=== PATIENT | male | born 1955 | race Caucasian/White ===

== ENCOUNTER 2020-07-20 05:44 | Day surgery (SDC) | payer MEDICARE ==
[2020-07-19 10:09] VITALS: BMI 25.7
[2020-07-20] MEDS ORDERED: Fentanyl 100 MCG/2 ML VIAL ONE (06:19)
[2020-07-20] MEDS ORDERED: Famotidine/PF 20 mg/2ml Vial ONE (06:20)
[2020-07-20] MEDS ORDERED: Bupivacaine 0.25% HCL 30 ML VIAL ONE (06:22)
[2020-07-20] MEDS ORDERED: EPINEPHrine 1 MG/ML AMP ONE (06:22)
[2020-07-20] MEDS ORDERED: SUGAMMADEX SODIUM 200 MG/2 ML VIAL ONE (06:46)
[2020-07-20] MEDS ORDERED: HYDROcodone/Acetaminophen 5/325 mg Tablet ONE (09:58)
[2020-07-20] MEDS ORDERED: ePHEDrine 50 MG/ML VIAL ONE (10:35)
[2020-07-20] MEDS ORDERED: PHENYLEPHRINE-NS 100 MCG/ML 10 ML SYRINGE ONE (10:35)
[2020-07-20] MEDS ORDERED: Lidocaine 1% PF 5 ML VIAL ONE (10:35)
[2020-07-20] MEDS ORDERED: Rocuronium Bromide 10 MG/ML (10ML VIAL) ONE (10:35)
[2020-07-20] MEDS ORDERED: Dexamethasone 20 MG/5 ML VIAL ONE (10:35)
[2020-07-20] MEDS ORDERED: Metoclopramide HCl 10 MG/2 ML VIAL ONE (10:35)
[2020-07-20] MEDS ORDERED: Ketorolac Tromethamine 30 MG/ML VIAL ONE (10:35)
[2020-07-20] MEDS ORDERED: Ondansetron PF 4 MG/2 ML Vial ONE (10:35)
[2020-07-20] MEDS ORDERED: PROPOFOL 200 MG/20 ML VIAL ONE (10:35)
--- NOTE | 2020-07-20 21:27 | OP ---
DATE OF PROCEDURE: 07/20/2020 PREOPERATIVE DIAGNOSIS: Left inguinal hernia. POSTOPERATIVE DIAGNOSIS: Left inguinal hernia. PROCEDURE PERFORMED: Da Gerri laparoscopic left inguinal hernia repair with mesh, 3DMax large. ANESTHESIA: General. ESTIMATED BLOOD LOSS: Minimal. COMPLICATIONS: None. SPECIMEN: None. FINDINGS: Left inguinal hernia. TECHNIQUE: The patient was taken to the operating room and laid supine on the operating room table. After general anesthetic was obtained, a Alex was placed. The abdomen was prepped and draped in a sterile fashion. Incision was made above the umbilicus. Cautery was used to dissect down to and score the fascia. Abdominal cavity was entered bluntly using a Luda clamp. An 11 mm balloon trocar was placed and high-flow pneumoperitoneum was obtained. Left and right abdominal 8-mm robot trocars were placed. All ports were docked to the robot. The surgeon goes to the console. The patient has left inguinal hernia. No right inguinal hernia. The 3DMax large mesh and the suture needles are placed into the abdomen. The surgeon goes to the console. The peritoneum was taken down in the left groin exposing the preperitoneal space. Preperitoneal space was bluntly dissected to pubic tubercle medially, anterior superior iliac crest laterally. Shelving edge of the inguinal ligament fully exposed. The indirect hernia sac was dissected high up on to the peritoneum. The direct defect was dissected back high up on to the peritoneum. The 3DMax large mesh was brought into the preperitoneal space and the M-labeled medial aspect was placed over pubic tubercle. The mesh was then laid out laterally to cover the direct, indirect, and femoral areas. The mesh was sewn via 2-0 Vicryl to pubic tubercle medially to the posterior fascia laterally. The peritoneum was reapproximated using running 3-0 Stratafix. All needles were removed from the abdomen and accounted for. There was no injury to any intraabdominal structures. All port sites were infiltrated using local anesthetic. All ports were removed under camera visualization. Pneumoperitoneum was let down. PDS was used to close the fascial defect above the umbilicus. All incisions were irrigated and closed using 4-0 Monocryl and Dermabond. The patient was sent to Recovery in stable condition. All instrument counts, needle counts, and lap counts were correct. Job ID: [id number]
== END 2020-07-20 11:00 | disposition home or self-care (01) ==
LOC: SDC 05:44
PROVIDERS: ATTEND Surgery
PROC: 0YU64JZ Supplement Left Inguinal Region with Synthetic Substitute, Percutaneous Endoscopic Approach (ICD-10-PCS; principal; 2020-07-20)
DX: K40.90 Unilateral inguinal hernia, without obstruction or gangrene, not specified as recurrent (principal); F41.9 Anxiety disorder, unspecified; J44.9 Chronic obstructive pulmonary disease, unspecified; F17.210 Nicotine dependence, cigarettes, uncomplicated; G43.909 Migraine, unspecified, not intractable, without status migrainosus; Z79.899 Other long term (current) drug therapy; Z90.5 Acquired absence of kidney
CPT/HCPCS: 49650; C1781; J0171; J0690; J1100; J1885; J2405; J2704; J2765; J3010; J3490; S0020; S0028

== ENCOUNTER 2021-01-17 08:26 | Day surgery (SDC) | payer MEDICARE ==
[2021-01-16 11:26] VITALS: BMI 24.3
[2021-01-17] MEDS ORDERED: Bupivacaine 0.25% HCL 30 ML VIAL ONE (09:56)
[2021-01-17] MEDS ORDERED: Lidocaine 1% w/Epinephrine 1:100K 20 ML VIAL ONE (09:56)
[2021-01-17] MEDS ORDERED: Bupivacaine PF 0.5% 30 ML VIAL ONE (09:59)
[2021-01-17] MEDS ORDERED: Fentanyl 100 MCG/2 ML VIAL ONE (10:05)
[2021-01-17] MEDS ORDERED: ePHEDrine 50 MG/ML VIAL ONE (10:21)
[2021-01-17] MEDS ORDERED: Ondansetron PF 4 MG/2 ML Vial ONE (10:21)
[2021-01-17] MEDS ORDERED: PROPOFOL 200 MG/20 ML VIAL ONE (10:21)
[2021-01-17] MEDS ORDERED: Dexamethasone 20 MG/5 ML VIAL ONE (10:21)
[2021-01-17] MEDS ORDERED: Lidocaine 1% PF 5 ML VIAL ONE (10:21)
== END 2021-01-17 13:04 | disposition home or self-care (01) ==
LOC: SDC 08:26
PROVIDERS: ATTEND Surgery
PROC: 0YU60JZ Supplement Left Inguinal Region with Synthetic Substitute, Open Approach (ICD-10-PCS; principal; 2021-01-17)
DX: K40.91 Unilateral inguinal hernia, without obstruction or gangrene, recurrent (principal); J44.9 Chronic obstructive pulmonary disease, unspecified; F17.210 Nicotine dependence, cigarettes, uncomplicated; N43.3 Hydrocele, unspecified; Z85.528 Personal history of other malignant neoplasm of kidney; Z79.82 Long term (current) use of aspirin; Z79.899 Other long term (current) drug therapy; Z88.8 Allergy status to other drugs, medicaments and biological substances; Z90.5 Acquired absence of kidney
CPT/HCPCS: 49520; A4306; C1781; J0690; J1100; J2405; J2704; J3010; J3490; S0020

== ENCOUNTER 2025-01-17 16:58 | Inpatient (IN) | payer OTHER ==
[2025-01-17 19:49] VITALS: BMI 20.5
[2025-01-18 06:28] LABS: #Basophils 0.03 10x3/uL (0.0-0.2); #Eosinophils Less than 0.03 10x3/uL (0.0-0.7); #Monocytes 0.91 10x3/uL (0.11-0.59); #Neutrophils 13.10 10x3/uL (1.40-6.50); %Basophils 0.2 % (0.0-1.0); %Eosinophils 0.0 % (0.0-10.0); %Lymphocytes 10.5 % (21.0-51.0); %Monocytes 5.8 % (0.0-10.0); %Neutrophils 82.9 % (42.0-75.0); Hematocrit 35.6 % (42.0-52.0); Hemoglobin 11.2 g/dL (14.0-18.0); Mean Corpuscular Hemoglobin 30.2 pg (27.0-31.0); Mean Corpuscular Volume 96.0 fL (78.0-98.0); Platelet Count 366 10x3/uL (130-400); Red Blood Cell (RBC) Count 3.71 mill/uL (4.70-6.10); White Blood Cell (WBC) Count 15.80 10x3/uL (4.8-10.8)
[2025-01-18 07:24] LABS: ALT (SGPT) Less than 7 U/L (Less than 45); AST (SGOT) 10 U/L (11-34); Albumin 2.8 g/dL (3.1-4.5); Alkaline Phosphatase 72 U/L (40-110); Anion Gap 14 mmol/L (10-20); BUN (Urea Nitrogen) 16 mg/dL (8.4-25.7); Bilirubin, Total 0.2 mg/dL (0.3-1.2); Calc. Creatinine Clearance 64 mL/min (70-130); Calcium 9.7 mg/dL (7.8-10.44); Carbon Dioxide 22 mmol/L (23-31); Chloride 107 mmol/L (98-107); Globulin 3.3 g/dL (2.4-3.5); Glucose 108 mg/dL (83-110); Potassium 4.4 mmol/L (3.5-5.1); Sodium 139 mmol/L (136-145)
[2025-01-18] MEDS: Azithromycin 250 MG TAB PO SCH (08:41)
[2025-01-18] MEDS: Ibuprofen 200 MG TAB PO SCH (08:41)
[2025-01-18] MEDS: predniSONE 20 MG TAB PO SCH (08:41)
[2025-01-18] MEDS: Aspirin Chewable 81 MG TAB PO SCH (08:41)
[2025-01-18] MEDS ORDERED: Acetaminophen 500 MG TAB PO SCH (09:00)
[2025-01-19] MEDS: Acetaminophen 500 MG TAB PO PRN (05:02)
[2025-01-19] MEDS: Benzocaine/Menthol 1 LOZ LOZ PO PRN (05:02)
[2025-01-19 10:52] VITALS: BMI 20.5
[2025-01-19 11:14] LABS: #Basophils 0.06 10x3/uL (0.0-0.2); #Eosinophils 0.05 10x3/uL (0.0-0.7); #Monocytes 1.60 10x3/uL (0.11-0.59); #Neutrophils 18.93 10x3/uL (1.40-6.50); %Basophils 0.3 % (0.0-1.0); %Eosinophils 0.2 % (0.0-10.0); %Lymphocytes 10.0 % (21.0-51.0); %Monocytes 6.9 % (0.0-10.0); %Neutrophils 81.8 % (42.0-75.0); Hematocrit 37.6 % (42.0-52.0); Hemoglobin 12.1 g/dL (14.0-18.0); Mean Corpuscular Hemoglobin 30.7 pg (27.0-31.0); Mean Corpuscular Volume 95.4 fL (78.0-98.0); Platelet Count 364 10x3/uL (130-400); Red Blood Cell (RBC) Count 3.94 mill/uL (4.70-6.10); White Blood Cell (WBC) Count 23.13 10x3/uL (4.8-10.8)
[2025-01-19 11:38] LABS: ALT (SGPT) 8 U/L (Less than 45); AST (SGOT) 18 U/L (11-34); Albumin 2.8 g/dL (3.1-4.5); Alkaline Phosphatase 71 U/L (40-110); Anion Gap 13 mmol/L (10-20); BUN (Urea Nitrogen) 20 mg/dL (8.4-25.7); Bilirubin, Total 0.2 mg/dL (0.3-1.2); Calc. Creatinine Clearance 79 mL/min (70-130); Calcium 9.4 mg/dL (7.8-10.44); Carbon Dioxide 23 mmol/L (23-31); Chloride 103 mmol/L (98-107); Globulin 4.0 g/dL (2.4-3.5); Glucose 111 mg/dL (83-110); Potassium 3.9 mmol/L (3.5-5.1); Sodium 135 mmol/L (136-145)
[2025-01-19] MEDS: Melatonin 3 MG TAB PO PRN (21:29)
[2025-01-20 06:17] LABS: #Basophils 0.07 10x3/uL (0.0-0.2); #Eosinophils 0.17 10x3/uL (0.0-0.7); #Monocytes 1.29 10x3/uL (0.11-0.59); #Neutrophils 13.76 10x3/uL (1.40-6.50); %Basophils 0.4 % (0.0-1.0); %Eosinophils 0.9 % (0.0-10.0); %Lymphocytes 19.2 % (21.0-51.0); %Monocytes 6.8 % (0.0-10.0); %Neutrophils 72.0 % (42.0-75.0); Hematocrit 38.1 % (42.0-52.0); Hemoglobin 12.1 g/dL (14.0-18.0); Mean Corpuscular Hemoglobin 30.6 pg (27.0-31.0); Mean Corpuscular Volume 96.2 fL (78.0-98.0); Platelet Count 331 10x3/uL (130-400); Red Blood Cell (RBC) Count 3.96 mill/uL (4.70-6.10); White Blood Cell (WBC) Count 19.08 10x3/uL (4.8-10.8)
[2025-01-20 06:39] LABS: ALT (SGPT) 11 U/L (Less than 45); AST (SGOT) 17 U/L (11-34); Albumin 2.8 g/dL (3.1-4.5); Alkaline Phosphatase 67 U/L (40-110); Anion Gap 11 mmol/L (10-20); BUN (Urea Nitrogen) 18 mg/dL (8.4-25.7); Bilirubin, Total 0.3 mg/dL (0.3-1.2); Calc. Creatinine Clearance 75 mL/min (70-130); Calcium 9.5 mg/dL (7.8-10.44); Carbon Dioxide 26 mmol/L (23-31); Chloride 102 mmol/L (98-107); Globulin 3.9 g/dL (2.4-3.5); Glucose 90 mg/dL (83-110); Potassium 4.0 mmol/L (3.5-5.1); Sodium 135 mmol/L (136-145)
[2025-01-20 17:35] VITALS: BP 130/80; TEMP 98
== END 2025-01-20 17:34 | disposition home or self-care (01) | DRG 189 ==
LOC: INTOOBSV 18:11 → T4-B 18:11 → OBSVTOIN 01-18 15:48
PROVIDERS: ADMIT Family Medicine; ATTEND Family Medicine
DX: J96.01 Acute respiratory failure with hypoxia (principal); J44.1 Chronic obstructive pulmonary disease with (acute) exacerbation; I10 Essential (primary) hypertension; Z98.890 Other specified postprocedural states; Z85.528 Personal history of other malignant neoplasm of kidney; Z88.8 Allergy status to other drugs, medicaments and biological substances; D64.9 Anemia, unspecified; E83.52 Hypercalcemia; Z79.899 Other long term (current) drug therapy; Z79.82 Long term (current) use of aspirin; Z91.013 Allergy to seafood; F17.210 Nicotine dependence, cigarettes, uncomplicated; Z90.5 Acquired absence of kidney; R91.8 Other nonspecific abnormal finding of lung field
CPT/HCPCS: 36415; 80053; 84145; 85025; 94640; G0378; J7512; J7620

== ENCOUNTER 2025-03-07 10:15 | Outpatient (CLI) | payer OTHER | END 2025-03-07 10:16 | disposition home or self-care (01) | LOC: PET 10:15 | PROVIDERS: ATTEND Internal Medicine Critical Care Medicine | DX: R91.1 Solitary pulmonary nodule (principal); C34.12 Malignant neoplasm of upper lobe, left bronchus or lung; C77.9 Secondary and unspecified malignant neoplasm of lymph node, unspecified; E27.8 Other specified disorders of adrenal gland | CPT/HCPCS: 78815; A9552 ==

== ENCOUNTER 2025-04-10 13:38 | Outpatient (CLI) | payer OTHER ==
[2025-04-10 14:12] LABS: Estimated GFR - POC 65.0
== END 2025-04-10 13:39 | disposition home or self-care (01) ==
LOC: SCSMRI 13:38
PROVIDERS: ATTEND Radiology Radiation Oncology
DX: C34.12 Malignant neoplasm of upper lobe, left bronchus or lung (principal); J32.0 Chronic maxillary sinusitis; H53.2 Diplopia; I63.81 Other cerebral infarction due to occlusion or stenosis of small artery; R90.82 White matter disease, unspecified; M54.10 Radiculopathy, site unspecified
CPT/HCPCS: 36415; 70553; 76376; 82565

== ENCOUNTER 2025-05-05 14:47 | Inpatient (IN) | payer OTHER ==
[2025-05-05] MEDS ORDERED: Aspirin Chewable 81 MG TAB ONE (15:29)
[2025-05-05] MEDS ORDERED: dilTIAZem 25 MG/5 ML VIAL ONE (15:29)
[2025-05-05 15:31] LABS: #Basophils 0.04 10x3/uL (0.0-0.2); #Eosinophils Less than 0.03 10x3/uL (0.0-0.7); #Monocytes 0.66 10x3/uL (0.11-0.59); #Neutrophils 22.91 10x3/uL (1.40-6.50); %Basophils 0.2 % (0.0-1.0); %Eosinophils 0.0 % (0.0-10.0); %Lymphocytes 2.7 % (21.0-51.0); %Monocytes 2.7 % (0.0-10.0); %Neutrophils 93.7 % (42.0-75.0); Hematocrit 41.7 % (42.0-52.0); Hemoglobin 13.3 g/dL (14.0-18.0); Mean Corpuscular Hemoglobin 30.2 pg (27.0-31.0); Mean Corpuscular Volume 94.6 fL (78.0-98.0); Platelet Count 492 10x3/uL (130-400); Red Blood Cell (RBC) Count 4.41 mill/uL (4.70-6.10); White Blood Cell (WBC) Count 24.45 10x3/uL (4.8-10.8)
[2025-05-05 15:46] LABS: ALT (SGPT) 56 U/L (Less than 45); AST (SGOT) 22 U/L (11-34); Albumin 3.4 g/dL (3.1-4.5); Alkaline Phosphatase 130 U/L (40-110); Anion Gap 17 mmol/L (10-20); BUN (Urea Nitrogen) 22 mg/dL (8.4-25.7); Bilirubin, Total 0.5 mg/dL (0.3-1.2); Calc. Creatinine Clearance 0 mL/min (70-130); Calcium 9.9 mg/dL (7.8-10.44); Carbon Dioxide 19 mmol/L (23-31); Chloride 105 mmol/L (98-107); Globulin 4.0 g/dL (2.4-3.5); Glucose 160 mg/dL (83-110); Potassium 4.8 mmol/L (3.5-5.1); Sodium 136 mmol/L (136-145)
[2025-05-05] MEDS ORDERED: Azithromycin 500 MG VIAL ONE (15:55)
[2025-05-05] MEDS ORDERED: cefTRIAXone (ROCEPHIN) 1 GM VIAL ONE (15:55)
[2025-05-05] MEDS ORDERED: Acetaminophen 325 MG TAB PO PRN (16:59)
[2025-05-05] MEDS: Ibuprofen 200 MG TAB PO SCH (20:55)
[2025-05-05] MEDS: Enoxaparin 80 MG (0.8 mL) SYRINGE SC SCH (20:56)
[2025-05-06] MEDS: Diltiazem HCl/D5W 125 MG in Premix 1 BAG IVPB SCH (04:15)
[2025-05-06 04:53] LABS: #Basophils 0.05 10x3/uL (0.0-0.2); #Eosinophils 0.05 10x3/uL (0.0-0.7); #Monocytes 1.12 10x3/uL (0.11-0.59); #Neutrophils 20.42 10x3/uL (1.40-6.50); %Basophils 0.2 % (0.0-1.0); %Eosinophils 0.2 % (0.0-10.0); %Lymphocytes 5.8 % (21.0-51.0); %Monocytes 4.8 % (0.0-10.0); %Neutrophils 88.2 % (42.0-75.0); Hematocrit 36.9 % (42.0-52.0); Hemoglobin 11.9 g/dL (14.0-18.0); Mean Corpuscular Hemoglobin 30.6 pg (27.0-31.0); Mean Corpuscular Volume 94.9 fL (78.0-98.0); Platelet Count 357 10x3/uL (130-400); Red Blood Cell (RBC) Count 3.89 mill/uL (4.70-6.10); White Blood Cell (WBC) Count 23.17 10x3/uL (4.8-10.8)
[2025-05-06 05:40] LABS: ALT (SGPT) 52 U/L (Less than 45); AST (SGOT) 28 U/L (11-34); Albumin 2.8 g/dL (3.1-4.5); Alkaline Phosphatase 114 U/L (40-110); Anion Gap 17 mmol/L (10-20); BUN (Urea Nitrogen) 24 mg/dL (8.4-25.7); Bilirubin, Total 0.3 mg/dL (0.3-1.2); Calc. Creatinine Clearance 72 mL/min (70-130); Calcium 9.1 mg/dL (7.8-10.44); Carbon Dioxide 19 mmol/L (23-31); Chloride 108 mmol/L (98-107); Globulin 3.4 g/dL (2.4-3.5); Glucose 113 mg/dL (83-110); Potassium 3.9 mmol/L (3.5-5.1); Sodium 140 mmol/L (136-145)
[2025-05-06] MEDS: Acetaminophen 325 MG TAB PO SCH (08:52)
[2025-05-06] MEDS: Aspirin Chewable 81 MG TAB PO SCH (08:52)
[2025-05-06] MEDS: Azithromycin 250 MG TAB PO SCH (09:01)
[2025-05-06] MEDS: dilTIAZem 30 MG TAB PO SCH (16:37)
[2025-05-06] MEDS: Apixaban 5 MG TAB PO SCH (20:34)
[2025-05-06] MEDS: Transdermal Patch Removal TOP SCH (20:35)
[2025-05-07 05:39] LABS: #Basophils 0.05 10x3/uL (0.0-0.2); #Eosinophils 0.07 10x3/uL (0.0-0.7); #Monocytes 0.99 10x3/uL (0.11-0.59); #Neutrophils 20.84 10x3/uL (1.40-6.50); %Basophils 0.2 % (0.0-1.0); %Eosinophils 0.3 % (0.0-10.0); %Lymphocytes 5.1 % (21.0-51.0); %Monocytes 4.2 % (0.0-10.0); %Neutrophils 89.5 % (42.0-75.0); Hematocrit 36.6 % (42.0-52.0); Hemoglobin 11.3 g/dL (14.0-18.0); Mean Corpuscular Hemoglobin 30.4 pg (27.0-31.0); Mean Corpuscular Volume 98.4 fL (78.0-98.0); Platelet Count 310 10x3/uL (130-400); Red Blood Cell (RBC) Count 3.72 mill/uL (4.70-6.10); White Blood Cell (WBC) Count 23.31 10x3/uL (4.8-10.8)
[2025-05-07 05:52] LABS: ALT (SGPT) 42 U/L (Less than 45); AST (SGOT) 20 U/L (11-34); Albumin 2.8 g/dL (3.1-4.5); Alkaline Phosphatase 106 U/L (40-110); Anion Gap 9 mmol/L (10-20); BUN (Urea Nitrogen) 22 mg/dL (8.4-25.7); Bilirubin, Total 0.4 mg/dL (0.3-1.2); Calc. Creatinine Clearance 71 mL/min (70-130); Calcium 8.9 mg/dL (7.8-10.44); Carbon Dioxide 17 mmol/L (23-31); Chloride 109 mmol/L (98-107); Globulin 3.4 g/dL (2.4-3.5); Glucose 103 mg/dL (83-110); Potassium 3.5 mmol/L (3.5-5.1); Sodium 131 mmol/L (136-145)
[2025-05-07 08:25] LABS: Magnesium 1.7 mg/dL (1.6-2.6)
[2025-05-07] MEDS: Azithromycin 250 MG TAB PO SCH (09:29)
[2025-05-07] MEDS: predniSONE 20 MG TAB PO SCH (09:29)
[2025-05-07] MEDS: Fioricet 325/50/40 mg Tablet PO PRN (10:40)
[2025-05-07] MEDS: Magnesium 2 GM/50 ML(in water) 2 GM in Premix 1 BAG IVPB SCH (10:51)
[2025-05-07] MEDS: Furosemide 40 MG (4 mL) VIAL SLOW IVP SCH (10:51)
[2025-05-07] MEDS: Digoxin 0.25 MG TAB PO SCH ×2 (11:07→20:27)
[2025-05-08 05:28] LABS: #Basophils 0.03 10x3/uL (0.0-0.2); #Eosinophils Less than 0.03 10x3/uL (0.0-0.7); #Monocytes 0.25 10x3/uL (0.11-0.59); #Neutrophils 20.81 10x3/uL (1.40-6.50); %Basophils 0.1 % (0.0-1.0); %Eosinophils 0.0 % (0.0-10.0); %Lymphocytes 1.7 % (21.0-51.0); %Monocytes 1.2 % (0.0-10.0); %Neutrophils 96.0 % (42.0-75.0); Hematocrit 35.9 % (42.0-52.0); Hemoglobin 11.4 g/dL (14.0-18.0); Mean Corpuscular Hemoglobin 30.6 pg (27.0-31.0); Mean Corpuscular Volume 96.5 fL (78.0-98.0); Platelet Count 283 10x3/uL (130-400); Red Blood Cell (RBC) Count 3.72 mill/uL (4.70-6.10); White Blood Cell (WBC) Count 21.66 10x3/uL (4.8-10.8)
[2025-05-08 05:54] LABS: ALT (SGPT) 38 U/L (Less than 45); AST (SGOT) 18 U/L (11-34); Albumin 2.9 g/dL (3.1-4.5); Alkaline Phosphatase 111 U/L (40-110); Anion Gap 17 mmol/L (10-20); BUN (Urea Nitrogen) 26 mg/dL (8.4-25.7); Bilirubin, Total 0.4 mg/dL (0.3-1.2); Calc. Creatinine Clearance 79 mL/min (70-130); Calcium 9.0 mg/dL (7.8-10.44); Carbon Dioxide 18 mmol/L (23-31); Chloride 103 mmol/L (98-107); Globulin 3.4 g/dL (2.4-3.5); Glucose 145 mg/dL (83-110); Magnesium 2.0 mg/dL (1.6-2.6); Potassium 4.3 mmol/L (3.5-5.1); Sodium 134 mmol/L (136-145)
[2025-05-08] MEDS: Digoxin 0.125 MG TAB PO SCH (07:59)
[2025-05-08] MEDS: Furosemide 40 MG (4 mL) VIAL SLOW IVP SCH (10:40)
[2025-05-08] MEDS: Acetaminophen 325 MG TAB PO PRN (11:13)
[2025-05-08] MEDS: Digoxin 0.5 MG/2 ML AMP SLOW IVP SCH (13:04)
[2025-05-08] MEDS: Mupirocin 1 GM TUBE NASAL DECOLONIZATION NASAL SCH (20:45)
[2025-05-09 04:02] LABS: Hematocrit 36.5 % (42.0-52.0); Hemoglobin 11.4 g/dL (14.0-18.0); Mean Corpuscular Hemoglobin 30.2 pg (27.0-31.0); Mean Corpuscular Volume 96.8 fL (78.0-98.0); Platelet Count 304 10x3/uL (130-400); Red Blood Cell (RBC) Count 3.77 mill/uL (4.70-6.10); White Blood Cell (WBC) Count 27.92 10x3/uL (4.8-10.8)
[2025-05-09 04:19] LABS: ALT (SGPT) 38 U/L (Less than 45); AST (SGOT) 21 U/L (11-34); Albumin 2.8 g/dL (3.1-4.5); Alkaline Phosphatase 102 U/L (40-110); Anion Gap 11 mmol/L (10-20); BUN (Urea Nitrogen) 31 mg/dL (8.4-25.7); Bilirubin, Total 0.3 mg/dL (0.3-1.2); Calc. Creatinine Clearance 76 mL/min (70-130); Calcium 8.6 mg/dL (7.8-10.44); Carbon Dioxide 25 mmol/L (23-31); Chloride 102 mmol/L (98-107); Globulin 3.3 g/dL (2.4-3.5); Glucose 150 mg/dL (83-110); Magnesium 1.8 mg/dL (1.6-2.6); Potassium 4.3 mmol/L (3.5-5.1); Sodium 134 mmol/L (136-145)
[2025-05-09 07:08] LABS: Anisocytosis SLIGHT = 6-15 cells HPF (0-5); Burr Cells SLIGHT = 2-5 cells HPF (0-1); Macrocytosis SLIGHT = 6-15 cells HPF (0-5); Platelet Adequacy Comment Platelets Normal; Polychromasia SLIGHT = 2-3 cells HPF (0-2); Smudge Cells 1.0 %
[2025-05-09] MEDS: dilTIAZem 30 MG TAB PO SCH (08:07)
[2025-05-09] MEDS: Magnesium Sulfate/D5W 1 GM in Premix 1 BAG IVPB SCH (09:20)
[2025-05-09] MEDS: Furosemide 40 MG (4 mL) VIAL SLOW IVP SCH (09:21)
[2025-05-09] MEDS: Sodium Chloride 0.65% Nasal 44 ML BOT EA NARE PRN (09:58)
[2025-05-09] MEDS: Diltiazem HCl/D5W 125 MG in Premix 1 BAG IVPB SCH (14:01)
[2025-05-09] MEDS: cefTRIAXone\\ROCEPHIN 1 GM in Sodium Chloride 0.9% 100 ML IVPB SCH (19:35)
[2025-05-10 03:51] LABS: Hematocrit 36.8 % (42.0-52.0); Hemoglobin 11.7 g/dL (14.0-18.0); Mean Corpuscular Hemoglobin 30.5 pg (27.0-31.0); Mean Corpuscular Volume 95.8 fL (78.0-98.0); Platelet Count 303 10x3/uL (130-400); Red Blood Cell (RBC) Count 3.84 mill/uL (4.70-6.10); White Blood Cell (WBC) Count 28.35 10x3/uL (4.8-10.8)
[2025-05-10 04:13] LABS: ALT (SGPT) 47 U/L (Less than 45); AST (SGOT) 23 U/L (11-34); Albumin 2.8 g/dL (3.1-4.5); Alkaline Phosphatase 94 U/L (40-110); Anion Gap 14 mmol/L (10-20); BUN (Urea Nitrogen) 35 mg/dL (8.4-25.7); Bilirubin, Total 0.2 mg/dL (0.3-1.2); Calc. Creatinine Clearance 70 mL/min (70-130); Calcium 8.8 mg/dL (7.8-10.44); Carbon Dioxide 23 mmol/L (23-31); Chloride 103 mmol/L (98-107); Globulin 3.4 g/dL (2.4-3.5); Glucose 160 mg/dL (83-110); Magnesium 2.0 mg/dL (1.6-2.6); Potassium 4.0 mmol/L (3.5-5.1); Sodium 136 mmol/L (136-145)
[2025-05-10 05:49] LABS: Platelet Adequacy Comment Platelets Normal; RBC Morphology Within Normal Limits; Smudge Cells 12.0 %
[2025-05-11 04:04] LABS: ALT (SGPT) 44 U/L (Less than 45); AST (SGOT) 21 U/L (11-34); Albumin 2.9 g/dL (3.1-4.5); Alkaline Phosphatase 84 U/L (40-110); Anion Gap 15 mmol/L (10-20); BUN (Urea Nitrogen) 28 mg/dL (8.4-25.7); Bilirubin, Total 0.3 mg/dL (0.3-1.2); Calc. Creatinine Clearance 74 mL/min (70-130); Calcium 8.8 mg/dL (7.8-10.44); Carbon Dioxide 24 mmol/L (23-31); Chloride 100 mmol/L (98-107); Globulin 3.2 g/dL (2.4-3.5); Glucose 136 mg/dL (83-110); Magnesium 2.0 mg/dL (1.6-2.6); Potassium 4.4 mmol/L (3.5-5.1); Sodium 135 mmol/L (136-145)
[2025-05-11 04:10] LABS: Hematocrit 36.2 % (42.0-52.0); Hemoglobin 11.6 g/dL (14.0-18.0); Mean Corpuscular Hemoglobin 30.9 pg (27.0-31.0); Mean Corpuscular Volume 96.5 fL (78.0-98.0); Platelet Count 273 10x3/uL (130-400); Red Blood Cell (RBC) Count 3.75 mill/uL (4.70-6.10); White Blood Cell (WBC) Count 26.34 10x3/uL (4.8-10.8)
[2025-05-11 04:53] LABS: Anisocytosis SLIGHT = 6-15 cells HPF (0-5); Burr Cells SLIGHT = 2-5 cells HPF (0-1); Macrocytosis SLIGHT = 6-15 cells HPF (0-5); Platelet Adequacy Comment Platelets Normal; Polychromasia SLIGHT = 2-3 cells HPF (0-2); Smudge Cells 1.0 %
[2025-05-11] MEDS: dilTIAZem 30 MG TAB PO SCH (10:04)
[2025-05-12 04:41] LABS: #Basophils 0.03 10x3/uL (0.0-0.2); #Eosinophils Less than 0.03 10x3/uL (0.0-0.7); #Monocytes 0.56 10x3/uL (0.11-0.59); #Neutrophils 23.58 10x3/uL (1.40-6.50); %Basophils 0.1 % (0.0-1.0); %Eosinophils 0.0 % (0.0-10.0); %Lymphocytes 0.6 % (21.0-51.0); %Monocytes 2.3 % (0.0-10.0); %Neutrophils 95.8 % (42.0-75.0); Hematocrit 35.6 % (42.0-52.0); Hemoglobin 11.0 g/dL (14.0-18.0); Mean Corpuscular Hemoglobin 30.5 pg (27.0-31.0); Mean Corpuscular Volume 98.6 fL (78.0-98.0); Platelet Count 250 10x3/uL (130-400); Red Blood Cell (RBC) Count 3.61 mill/uL (4.70-6.10); White Blood Cell (WBC) Count 24.62 10x3/uL (4.8-10.8)
[2025-05-12 05:03] LABS: ALT (SGPT) 54 U/L (Less than 45); AST (SGOT) 26 U/L (11-34); Albumin 2.7 g/dL (3.1-4.5); Alkaline Phosphatase 76 U/L (40-110); Anion Gap 12 mmol/L (10-20); BUN (Urea Nitrogen) 27 mg/dL (8.4-25.7); Bilirubin, Total 0.2 mg/dL (0.3-1.2); Calc. Creatinine Clearance 93 mL/min (70-130); Calcium 8.5 mg/dL (7.8-10.44); Carbon Dioxide 25 mmol/L (23-31); Chloride 102 mmol/L (98-107); Globulin 3.0 g/dL (2.4-3.5); Glucose 165 mg/dL (83-110); Magnesium 2.0 mg/dL (1.6-2.6); Potassium 4.1 mmol/L (3.5-5.1); Sodium 135 mmol/L (136-145)
[2025-05-12 10:47] LABS: Digoxin 0.56 ng/mL (0.8-2.0)
[2025-05-13 03:54] LABS: Hematocrit 37.1 % (42.0-52.0); Hemoglobin 11.6 g/dL (14.0-18.0); Mean Corpuscular Hemoglobin 30.2 pg (27.0-31.0); Mean Corpuscular Volume 96.6 fL (78.0-98.0); Platelet Count 253 10x3/uL (130-400); Red Blood Cell (RBC) Count 3.84 mill/uL (4.70-6.10); White Blood Cell (WBC) Count 31.41 10x3/uL (4.8-10.8)
[2025-05-13 04:06] LABS: ALT (SGPT) 59 U/L (Less than 45); AST (SGOT) 22 U/L (11-34); Albumin 2.9 g/dL (3.1-4.5); Alkaline Phosphatase 90 U/L (40-110); Anion Gap 12 mmol/L (10-20); BUN (Urea Nitrogen) 29 mg/dL (8.4-25.7); Bilirubin, Total 0.3 mg/dL (0.3-1.2); Calc. Creatinine Clearance 85 mL/min (70-130); Calcium 8.6 mg/dL (7.8-10.44); Carbon Dioxide 23 mmol/L (23-31); Chloride 103 mmol/L (98-107); Globulin 3.1 g/dL (2.4-3.5); Glucose 155 mg/dL (83-110); Magnesium 1.9 mg/dL (1.6-2.6); Potassium 4.4 mmol/L (3.5-5.1); Sodium 134 mmol/L (136-145)
[2025-05-13 04:26] LABS: Burr Cells SLIGHT = 2-5 cells HPF (0-1); Platelet Adequacy Comment Platelets Normal; Smudge Cells 2.0 %
[2025-05-13] MEDS: Furosemide 40 MG (4 mL) VIAL SLOW IVP SCH (08:58)
[2025-05-14 04:16] LABS: Hematocrit 39.1 % (42.0-52.0); Hemoglobin 12.2 g/dL (14.0-18.0); Mean Corpuscular Hemoglobin 30.0 pg (27.0-31.0); Mean Corpuscular Volume 96.1 fL (78.0-98.0); Platelet Count 240 10x3/uL (130-400); Red Blood Cell (RBC) Count 4.07 mill/uL (4.70-6.10); White Blood Cell (WBC) Count 32.40 10x3/uL (4.8-10.8)
[2025-05-14 04:36] LABS: ALT (SGPT) 54 U/L (Less than 45); AST (SGOT) 20 U/L (11-34); Albumin 2.8 g/dL (3.1-4.5); Alkaline Phosphatase 77 U/L (40-110); Anion Gap 14 mmol/L (10-20); BUN (Urea Nitrogen) 32 mg/dL (8.4-25.7); Bilirubin, Total 0.3 mg/dL (0.3-1.2); Calc. Creatinine Clearance 83 mL/min (70-130); Calcium 8.9 mg/dL (7.8-10.44); Carbon Dioxide 25 mmol/L (23-31); Chloride 98 mmol/L (98-107); Globulin 3.1 g/dL (2.4-3.5); Glucose 139 mg/dL (83-110); Magnesium 1.9 mg/dL (1.6-2.6); Potassium 4.2 mmol/L (3.5-5.1); Sodium 133 mmol/L (136-145)
[2025-05-14 04:40] LABS: Anisocytosis SLIGHT = 6-15 cells HPF (0-5); Platelet Adequacy Comment Platelets Normal; Polychromasia SLIGHT = 2-3 cells HPF (0-2)
[2025-05-15 03:29] LABS: Hematocrit 39.7 % (42.0-52.0); Hemoglobin 12.4 g/dL (14.0-18.0); Mean Corpuscular Hemoglobin 30.5 pg (27.0-31.0); Mean Corpuscular Volume 97.5 fL (78.0-98.0); Platelet Count 229 10x3/uL (130-400); Red Blood Cell (RBC) Count 4.07 mill/uL (4.70-6.10); White Blood Cell (WBC) Count 33.46 10x3/uL (4.8-10.8)
[2025-05-15 03:47] LABS: ALT (SGPT) 45 U/L (Less than 45); AST (SGOT) 15 U/L (11-34); Albumin 2.7 g/dL (3.1-4.5); Alkaline Phosphatase 71 U/L (40-110); Anion Gap 7 mmol/L (10-20); BUN (Urea Nitrogen) 36 mg/dL (8.4-25.7); Bilirubin, Total 0.3 mg/dL (0.3-1.2); Calc. Creatinine Clearance 92 mL/min (70-130); Calcium 8.8 mg/dL (7.8-10.44); Carbon Dioxide 27 mmol/L (23-31); Chloride 106 mmol/L (98-107); Globulin 3.0 g/dL (2.4-3.5); Glucose 131 mg/dL (83-110); Magnesium 2.0 mg/dL (1.6-2.6); Potassium 4.4 mmol/L (3.5-5.1); Sodium 136 mmol/L (136-145)
[2025-05-15 04:05] LABS: Platelet Adequacy Comment Platelets Normal; RBC Morphology Within Normal Limits
[2025-05-15 05:46] VITALS: BMI 20.8
[2025-05-15 10:49] VITALS: BP 148/102
[2025-05-15] MEDS: Ibuprofen 200 MG TAB PO PRN (20:53)
[2025-05-16] MEDS: ALPRAZolam 0.25 MG TAB PO PRN (00:35)
[2025-05-16 04:43] LABS: Hematocrit 39.6 % (42.0-52.0); Hemoglobin 12.6 g/dL (14.0-18.0); Mean Corpuscular Hemoglobin 30.4 pg (27.0-31.0); Mean Corpuscular Volume 95.7 fL (78.0-98.0); Platelet Count 211 10x3/uL (130-400); Red Blood Cell (RBC) Count 4.14 mill/uL (4.70-6.10); White Blood Cell (WBC) Count 29.00 10x3/uL (4.8-10.8)
[2025-05-16 04:52] LABS: ALT (SGPT) 44 U/L (Less than 45); AST (SGOT) 18 U/L (11-34); Albumin 2.8 g/dL (3.1-4.5); Alkaline Phosphatase 69 U/L (40-110); Anion Gap 15 mmol/L (10-20); BUN (Urea Nitrogen) 34 mg/dL (8.4-25.7); Bilirubin, Total 0.3 mg/dL (0.3-1.2); Calc. Creatinine Clearance 75 mL/min (70-130); Calcium 8.7 mg/dL (7.8-10.44); Carbon Dioxide 24 mmol/L (23-31); Chloride 102 mmol/L (98-107); Globulin 2.9 g/dL (2.4-3.5); Glucose 125 mg/dL (83-110); Magnesium 2.1 mg/dL (1.6-2.6); Potassium 4.7 mmol/L (3.5-5.1); Sodium 136 mmol/L (136-145)
[2025-05-16 05:22] LABS: Anisocytosis SLIGHT = 6-15 cells HPF (0-5); Platelet Adequacy Comment Platelets Normal; Polychromasia SLIGHT = 2-3 cells HPF (0-2)
[2025-05-16] MEDS ORDERED: Lidocaine 1% (PF) 30 ML VIAL ONE (06:37)
[2025-05-16] MEDS ORDERED: PROPOFOL 40 ML ONE (06:37)
[2025-05-16] MEDS ORDERED: Etomidate 40 MG (20 mL) VIAL ONE (06:37)
[2025-05-16] MEDS ORDERED: PHENYLEPHRINE-NS 100 MCG/ML 10 ML SYRINGE ONE (06:38)
[2025-05-16 13:13] VITALS: BMI 20.2
[2025-05-16] MEDS: Acetaminophen/Codeine 30-300mg Tablet PO PRN (20:35)
[2025-05-16] MEDS: Cefdinir 300 MG CAP PO SCH (20:35)
[2025-05-17 04:28] LABS: Hematocrit 40.0 % (42.0-52.0); Hemoglobin 12.8 g/dL (14.0-18.0); Mean Corpuscular Hemoglobin 30.8 pg (27.0-31.0); Mean Corpuscular Volume 96.2 fL (78.0-98.0); Platelet Count 211 10x3/uL (130-400); Red Blood Cell (RBC) Count 4.16 mill/uL (4.70-6.10); White Blood Cell (WBC) Count 29.29 10x3/uL (4.8-10.8)
[2025-05-17 04:38] LABS: ALT (SGPT) 38 U/L (Less than 45); AST (SGOT) 16 U/L (11-34); Albumin 2.8 g/dL (3.1-4.5); Alkaline Phosphatase 73 U/L (40-110); Anion Gap 18 mmol/L (10-20); BUN (Urea Nitrogen) 34 mg/dL (8.4-25.7); Bilirubin, Total 0.4 mg/dL (0.3-1.2); Calc. Creatinine Clearance 75 mL/min (70-130); Calcium 8.6 mg/dL (7.8-10.44); Carbon Dioxide 23 mmol/L (23-31); Chloride 101 mmol/L (98-107); Globulin 3.0 g/dL (2.4-3.5); Glucose 114 mg/dL (83-110); Magnesium 1.9 mg/dL (1.6-2.6); Potassium 4.6 mmol/L (3.5-5.1); Sodium 137 mmol/L (136-145)
[2025-05-17 05:01] LABS: Platelet Adequacy Comment Platelets Normal; RBC Morphology Within Normal Limits; Smudge Cells 8.1 %
[2025-05-17] MEDS: predniSONE 20 MG TAB PO SCH (09:06)
[2025-05-17 12:41] VITALS: TEMP 97.9
== END 2025-05-17 15:45 | disposition home or self-care (01) | DRG 308 ==
LOC: ERS 14:47 → 2NO 17:04 → CCU 05-07 08:16 → IMCU/EMU 05-10 06:13
PROVIDERS: ADMIT Family Medicine; ATTEND Family Medicine
PROC: 5A0955A Assistance with Respiratory Ventilation, Greater than 96 Consecutive Hours, High Flow/Velocity Cannula (ICD-10-PCS; 2025-05-07)
PROC: 3E03329 Introduction of Other Anti-infective into Peripheral Vein, Percutaneous Approach (ICD-10-PCS; 2025-05-09)
PROC: 5A2204Z Restoration of Cardiac Rhythm, Single (ICD-10-PCS; 2025-05-16)
PROC: B24BZZ4 Ultrasonography of Heart with Aorta, Transesophageal (ICD-10-PCS; principal; 2025-05-17)
DX: I48.3 Typical atrial flutter (principal); J18.9 Pneumonia, unspecified organism; J96.21 Acute and chronic respiratory failure with hypoxia; J81.0 Acute pulmonary edema; E87.20 Acidosis, unspecified; J44.1 Chronic obstructive pulmonary disease with (acute) exacerbation; J44.0 Chronic obstructive pulmonary disease with (acute) lower respiratory infection; I24.89 Other forms of acute ischemic heart disease; R64 Cachexia; C34.12 Malignant neoplasm of upper lobe, left bronchus or lung; Z68.1 Body mass index [BMI] 19.9 or less, adult; J84.10 Pulmonary fibrosis, unspecified; J43.8 Other emphysema; I10 Essential (primary) hypertension; F17.210 Nicotine dependence, cigarettes, uncomplicated; E83.42 Hypomagnesemia; I35.1 Nonrheumatic aortic (valve) insufficiency; I48.91 Unspecified atrial fibrillation; I27.23 Pulmonary hypertension due to lung diseases and hypoxia; I08.1 Rheumatic disorders of both mitral and tricuspid valves; F41.9 Anxiety disorder, unspecified; Z88.8 Allergy status to other drugs, medicaments and biological substances; Z90.5 Acquired absence of kidney; Z85.528 Personal history of other malignant neoplasm of kidney; Z99.81 Dependence on supplemental oxygen; Z79.82 Long term (current) use of aspirin; Z79.899 Other long term (current) drug therapy; Z98.890 Other specified postprocedural states; Z79.01 Long term (current) use of anticoagulants
CPT/HCPCS: 36415; 36416; 71045; 71275; 80053; 80162; 83605; 83735; 83880; 84145; 84484; 85025; 87040; 92960; 93005; 93010; 93306; 93312; 94640; 96365; 96375; J0456; J0696; J1160; J1650; J1940; J2003; J2704; J2919; J3475; J7512